=== PATIENT | male | born 1965 | race Caucasian/White ===

== ENCOUNTER 2020-03-30 11:03 | Inpatient (IN) | payer OTHER ==
[~2020-03-30] VITALS: Ht 152.4 cm; Wt 79.4 kg
[2020-03-30 11:47] LABS: HEMOGLOBIN 17.2 gm/dl (14.0-17.5); RED BLOOD COUNT 5.16 M/UL (4.20-5.50); WHITE BLOOD COUNT 11.6 K/UL (4.5-11.0)
[2020-03-30 12:11] LABS: BUN/CREATININE RATIO 15 (0-10)
[2020-03-30] MEDS ORDERED: PRILOSEC OTC20 MG PO (13:49)
[2020-03-31 05:28] LABS: WHITE BLOOD COUNT 11.8 K/UL (4.5-11.0)
[2020-03-31 05:29] LABS: HEMOGLOBIN 15.1 gm/dl (14.0-17.5); RED BLOOD COUNT 4.61 M/UL (4.20-5.50)
[2020-03-31 05:48] LABS: BUN/CREATININE RATIO 18 (0-10)
--- NOTE | 2020-03-31 12:03 | NUR ---
PT ARRIVED TO UNIT AT11:25 FROM [employer], VSS, TR BAND NOTED TO RIGHT WRIST, NO S/S BLEEDING, EDEMA, NOR HEMATOMA, BEDREST UNTIL 12:30, PT ALERT AND ORIENTED, WILL CONTINUE TO MONITOR
[2020-03-31 19:38] LABS: HEMOGLOBIN 14.7 gm/dl (14.0-17.5); RED BLOOD COUNT 4.51 M/UL (4.20-5.50); WHITE BLOOD COUNT 10.7 K/UL (4.5-11.0)
[2020-03-31 19:52] LABS: BUN/CREATININE RATIO 19 (0-10)
[2020-04-01 06:15] LABS: RED BLOOD COUNT 4.59 M/UL (4.20-5.50); WHITE BLOOD COUNT 9.9 K/UL (4.5-11.0)
[2020-04-01 06:46] LABS: BUN/CREATININE RATIO 19 (0-10)
[2020-04-01] MEDS ORDERED: ATORVASTATIN CA20 MG PO (09:53)
[2020-04-01] MEDS ORDERED: ASPIRIN EC81 MG PO (09:53)
[2020-04-01] MEDS ORDERED: BRILINTA 90 MG90 MG PO (09:53)
[2020-04-01] MEDS ORDERED: LOPRESSOR 25 MG25 MG PO (09:53)
[2020-04-01] MEDS ORDERED: NITROGLYCERIN0.4 MG SL (09:53)
== END 2020-04-01 11:19 | disposition home or self-care (01) | DRG 247 ==
LOC: ER1 11:03 → CDU 13:26 → MED SURG 4 17:22 → PROG CARE 03-31 11:19
PROVIDERS: Family Medicine; Internal Medicine Interventional Cardiology; Physician Assistant; ADMIT Hospitalist
PROC: 4A023N7 Measurement of Cardiac Sampling and Pressure, Left Heart, Percutaneous Approach (ICD-10-PCS; principal; 2020-03-31)
PROC: B211YZZ Fluoroscopy of Multiple Coronary Arteries using Other Contrast (ICD-10-PCS; principal; 2020-03-31)
PROC: 027135Z Dilation of Coronary Artery, Two Arteries with Two Drug-eluting Intraluminal Devices, Percutaneous Approach (ICD-10-PCS; principal; 2020-03-31)
DX: I21.4 Non-ST elevation (NSTEMI) myocardial infarction (principal); I10 Essential (primary) hypertension; E78.5 Hyperlipidemia, unspecified; K21.9 Gastro-esophageal reflux disease without esophagitis; F17.210 Nicotine dependence, cigarettes, uncomplicated; Z88.5 Allergy status to narcotic agent; I25.110 Atherosclerotic heart disease of native coronary artery with unstable angina pectoris; Z79.82 Long term (current) use of aspirin; Z20.822 Contact with and (suspected) exposure to COVID-19
CPT/HCPCS: ECHO; 36415; 71046; 80048; 80053; 82550; 82553; 83874; 84484; 85025; 85027; 85347; 85379; 85730; 90471; 93005; 93306; 96365; 96366; 96375; 96376; 99152; 99153; 99285; C1725; C1769; C1874; C1887; C1894; C9600; J1644; J2250; J3010; Q9967; U0002